=== PATIENT | female | born 1995 | race Caucasian/White ===

== ENCOUNTER 2017-03-17 13:00 | Emergency (ER) | payer OTHER ==
[~2017-03-17] VITALS: Ht 165.1 cm; Wt 108.9 kg
== END 2017-03-17 13:17 | disposition home or self-care (01) ==
LOC: ED 13:00
DX: Z00.8 Encounter for other general examination (principal)

== ENCOUNTER 2021-11-20 01:15 | Inpatient (IN) | payer BC, OTHER ==
[~2021-11-20] VITALS: Ht 165.1 cm; Wt 113.4 kg
--- NOTE | 2021-11-20 01:57 | NUR ---
COVID SWAB DONE TO BOTH NARES AND SENT TO IN HOUSE LAB.
[2021-11-20] MEDS ORDERED: PRENATAL ONE T1 EAC1 PO (04:11)
[2021-11-20] MEDS ORDERED: VITAMIN D-40010 MCG (04:12)
--- NOTE | 2021-11-21 07:31 | PR ---
[facility] [address] [place], [place] [address] Signed PP Progress Notes Datetime Report Generated by JAME: 11/21/2021 07:31 SUBJECTIVE: [id number] Pain: Within Normal Limits Nausea/Vomiting: Denies Vital Signs: [id number] Vital Signs: Reviewed; Within Normal Limits Cardiovascular: Not Done Respiratory: Not Done Abdomen/Uterus: Abnormal Lochia: Normal Vulva/Perineum: Not Done Breasts: Not Done CVA Tenderness: Not Done Extremities: Normal Incision: Not Applicable Progress: Normal Exam Comments: Fundus firm, NT @ U-2. H/H 12.2/37.4, WBC 9.8,plat 288k IMPRESSION/PLAN/PROCEDURES: [id number] Impression: Normal Progression Plan: Discharge Procedures: None Progress Notes: Doing well. She is ready for D/C. Signing Physician: Cris Adame MD Copies: ~ *Electronically Signed* 11/21/21730 CRIS ADAME MD PATIENT NAME: CEDRIC MURPHY PROGRESS NOTE DATE OF : 95 PHYSICIAN: CRIS ADAME MD RPT #: [id number] REPORT IS CONFIDENTIAL AND NOT TO BE RELEASED WITHOUT AUTHORIZATION
== END 2021-11-21 10:25 | disposition home or self-care (01) | DRG 807 ==
LOC: FBCO 01:15 → FBC 01:39
PROVIDERS: ADMIT Obstetrics & Gynecology; ATTEND Obstetrics & Gynecology
PROC: 10E0XZZ Delivery of Products of Conception, External Approach (ICD-10-PCS; principal; 2021-11-20)
DX: O42.02 Full-term premature rupture of membranes, onset of labor within 24 hours of rupture (principal); Z37.0 Single live birth; Z3A.38 38 weeks gestation of pregnancy; Z20.822 Contact with and (suspected) exposure to COVID-19; O77.0 Labor and delivery complicated by meconium in amniotic fluid; O99.214 Obesity complicating childbirth; Z79.899 Other long term (current) drug therapy
CPT/HCPCS: 36415; 85025; 85027; 86850; 86900; 86901; 87502; A9270; C9803; J2590; J7121; U0003